=== PATIENT | female | born 1990 | race Caucasian/White ===

== ENCOUNTER 2018-09-14 23:18 | Emergency (ER) | payer MEDICAID ==
[~2018-09-14] VITALS: Ht 162.6 cm; Wt 95.3 kg
[2018-09-14 23:18] VITALS: BP 132/81
--- NOTE | 2018-09-14 23:25 | NUR ---
AMBULATED TO ER BED 2
--- NOTE | 2018-09-14 23:35 | NUR ---
PT C/O UTI SYMPTOMS X 9 DAYS, INCREASED FREQUENCY, FLANK PAIN 9/10 SORENESS BILAT FLANKS, NON RADIATING, CONTINUOUS. DENIES NVD. PATIENT PLACED ON MONITOR, BED IN LOW POSITION/LOCKED, SIDE RAILS UP X1.
--- NOTE | 2018-09-14 23:53 | NUR ---
Patient being evaluated by physician at bedside.
[2018-09-15] MEDS ORDERED: KETOROLAC 60 MG/2 ML VIAL IM ONE
--- NOTE | 2018-09-15 00:04 | NUR ---
lab at bedside
[2018-09-15 00:12] LABS: BASOPHILS # (AUTO) 0.1 K/uL (0.00-0.22); BASOPHILS % (AUTO) 0.7 % (0.0-2.0); EOSINOPHILS # (AUTO) 0.1 K/uL (0-0.4); EOSINOPHILS % (AUTO) 0.7 % (0.0-4.0); HEMATOCRIT 38.8 % (36-48); HEMOGLOBIN 13.1 g/dL (12.0-16.0); LYMPHOCYTES % (AUTO) 39.3 % (20.5-51.1); MEAN CORPUSCULAR HEMOGLOBIN 29 pg (27-31); MEAN CORPUSCULAR HGB CONC 34 g/dL (33-37); MEAN CORPUSCULAR VOLUME 86.8 fL (80-94); MONOCYTES # (AUTO) 0.5 K/uL (0.8-1.0); MONOCYTES % (AUTO) 6.8 % (1.7-9.3); NEUTROPHILS % (AUTO) 52.5 % (42.2-75.2); PLATELET COUNT (AUTO) 260 K/uL (140-450); RED BLOOD CELL COUNT(AUTO) 4.47 MIL/uL (4.20-5.40); RED CELL DISTRIBUTION WIDTH 13.2 % (11.6-13.7); WHITE BLOOD COUNT (AUTO) 7.7 K/uL (4.8-10.8)
[2018-09-15 00:21] LABS: ANION GAP 9.4 (8-16); CARBON DIOXIDE 29.5 mmol/L (21-32); CREATININE 1.8 mg/dL (0.6-1.3); POTASSIUM 3.9 mmol/L (3.5-5.1)
[2018-09-15 01:20] VITALS: BP 113/74
== END 2018-09-15 01:20 | disposition home or self-care (01) ==
LOC: MED 23:18
DX: N17.9 Acute kidney failure, unspecified (principal)
CPT/HCPCS: 36415; 80048; 81002; 81025; 85025; 96372; 99283; J1885

== ENCOUNTER 2018-12-10 01:28 | Emergency (ER) | payer MEDICAID ==
[~2018-12-10] VITALS: Ht 162.6 cm; Wt 95.3 kg
[2018-12-10 01:36] VITALS: BP 108/69
--- NOTE | 2018-12-10 01:36 | NUR ---
TO BED # 08 AMBULATORY
--- NOTE | 2018-12-10 02:05 | NUR ---
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 PT STATES SHE WAS SEEN HERE ABOUT 2 MONTHS AGO AND WAS DX WITH MILD KIDNEY DISEASE AND TO F/U WITH PMD FOR FURTHER EVALUATION. PT STATES SHE SAW PMD AND WAS TOLD SHE'S "TOO YOUNG TO HAVE KIDNEY DISEASE" AND WAS SENT HOME WITH A THREE MONTH COURSE OF ABX FOR UTI WITHOUT ANY FURTHER WORK UP. PT STATES THE MEDICATION MADE HER S/SX WORSE AND SHE STOPPED TAKING IT AFTER 3 WEEKS. PT ALSO C/O OLIGURIA AND FREQUENCY. PT STATES SHE NEEDS TO GO TO THE RR 20+ TIMES A DAY. PMH-- DENIES
[2018-12-10] MEDS ORDERED: LEVOFLOXACIN 750 MG TAB PO ONE (02:20)
[2018-12-10 02:34] VITALS: BP 108/69
--- NOTE | 2018-12-10 02:34 | NUR ---
Patient discharged with v/s stable. Written and verbal after care instructions given and explained. Patient alert, oriented and verbalized understanding of instructions. Ambulatory with steady gait. All questions addressed prior to discharge. ID band removed. Patient advised to follow up with PMD. Rx of Levaquin given. Patient educated on indication of medication including possible reaction and side effects. Opportunity to ask questions provided and answered.
== END 2018-12-10 02:34 | disposition home or self-care (01) ==
LOC: MED 01:28
DX: N12 Tubulo-interstitial nephritis, not specified as acute or chronic (principal); Z88.0 Allergy status to penicillin
CPT/HCPCS: 81002; 81025; 99282; 99283

== ENCOUNTER 2020-08-25 05:28 | Emergency (ER) | payer MEDICAID, OTHER ==
[~2020-08-25] VITALS: Ht 162.6 cm; Wt 86.2 kg
[2020-08-25 05:34] VITALS: BP 121/76
--- NOTE | 2020-08-25 05:34 | NUR ---
TO BED AMBULATORY
--- NOTE | 2020-08-25 05:45 | NUR ---
29 YO F BIB SELF FOR C/O BILAT FLANK PAIN. PT HAS URINARY HESISTANCY; DENIES FEVER/ AND OR CHILLS @ THIS TIME. PT STATES PAIN HAS BEEN ONGOING ON/OFF FOR LAST YEAR. PT AAOX4, ABD SOFT NON DISTENDED, ACTIVE BOWEL SOUNDS. GURNEY LOCKED IN LOWEST POSITION. WILL UPDATE ERMD HX: FREQUENT UTIS RX: NONE AX: PCN
[2020-08-25] MEDS ORDERED: ACETAMINOPHEN EXTRA STRENGTH 500 MG TAB PO ONE (06:55)
[2020-08-25] MEDS ORDERED: NACL 0.9% 1,000 ML IV ONE (07:00)
[2020-08-25 07:15] LABS: BASOPHILS % (AUTO) 0.6 % (0.0-2.0); EOSINOPHILS % (AUTO) 0.4 % (0.0-4.0); HEMATOCRIT 38.6 % (36-48); HEMOGLOBIN 12.8 g/dL (12.0-16.0); LYMPHOCYTES # (AUTO) 1.5 K/uL (2.5-16.5); LYMPHOCYTES % (AUTO) 21.5 % (20.5-51.1); MEAN CORPUSCULAR HEMOGLOBIN 29 pg (27-31); MEAN CORPUSCULAR HGB CONC 33 g/dL (33-37); MEAN CORPUSCULAR VOLUME 87.7 fL (80-94); MONOCYTES # (AUTO) 0.4 K/uL (0.8-1.0); MONOCYTES % (AUTO) 5.8 % (1.7-9.3); NEUTROPHILS % (AUTO) 71.7 % (42.2-75.2); PLATELET COUNT (AUTO) 216 K/uL (140-450); RED CELL DISTRIBUTION WIDTH 13.1 % (11.6-13.7)
--- NOTE | 2020-08-25 07:24 | NUR ---
REPORT GIVEN TO DAY SHIFT FOR CONTINUITY OF CARE
[2020-08-25 07:29] LABS: ALBUMIN 3.7 g/dL (3.4-5.0); ANION GAP 12.2 (8-16); CARBON DIOXIDE 28.2 mmol/L (21-32); CREATININE 0.9 mg/dL (0.6-1.3); POTASSIUM 4.4 mmol/L (3.5-5.1); TOTAL BILIRUBIN 0.4 mg/dL (0.0-1.0)
[2020-08-25 07:33] LABS: BILIRUBIN,URINE NEGATIVE (NEGATIVE); BLOOD, URINE NEGATIVE (NEGATIVE); COLOR,URINE YELLOW (YELLOW); LEUKOCYTE ESTERASE ,URINE 1+ (NEGATIVE); NITRITE, URINE NEGATIVE (NEGATIVE); UGLUCOSE NEGATIVE (NEGATIVE)
[2020-08-25 07:40] LABS: RBC,URINE 0-5 /HPF (0-5); WBC,URINE 0-5 /HPF (0-5)
[2020-08-25 07:41] LABS: APPEARANCE,URINE SLIGHTLY HAZY (CLEAR)
[2020-08-25] MEDS ORDERED: KETOROLAC 30 MG/ML VIAL ONE (09:09)
[2020-08-25] MEDS ORDERED: KETOROLAC 30 MG/ML VIAL IVP ONE (09:10)
--- NOTE | 2020-08-25 09:45 | NUR ---
Patient discharged with v/s stable. Written and verbal after care instructions about flank pain given and explained. Patient verbalized understanding. Ambulatory with steady gait. All questions addressed prior to discharge. Advised to follow up with PMD.
[2020-08-25 09:53] VITALS: BP 118/70
== END 2020-08-25 09:45 | disposition home or self-care (01) ==
LOC: MED 05:28
DX: R10.9 Unspecified abdominal pain (principal); Z88.0 Allergy status to penicillin
CPT/HCPCS: 36415; 80053; 81001; 81025; 82150; 83690; 84703; 85025; 87086; 96361; 96374; 99284; J1885; J7030

== ENCOUNTER 2020-10-01 20:52 | Emergency (ER) | payer OTHER ==
[~2020-10-01] VITALS: Ht 162.6 cm; Wt 81.6 kg
[2020-10-01 21:11] VITALS: BP 126/71
--- NOTE | 2020-10-01 21:44 | NUR ---
PT AMBULATED TO BED 1
--- NOTE | 2020-10-01 21:57 | NUR ---
26/F complaining of sob, back pain/body aches, productive cough x 2 days. Pt denies any nausea, vomiting, diarrhea, feveer. Pt not sure if she had contact with any sick person. Pt denies otc medication. Pt aox4, ambulatory, able to make needs known. Respirations even and unlabored, pt not in distress. No requests made at this time. [facility], will continue to monitor. med hx: "kidney problems" (unidentified), anemia allergies: penicillins
--- NOTE | 2020-10-01 22:29 | NUR ---
Dr. Jennings examining patient.
--- NOTE | 2020-10-01 22:35 | NUR ---
COVID BALWINDER SWAB COLLECTED AND SENT TO LAB
[2020-10-01] MEDS ORDERED: ALBU0.0912 IH (23:22)
[2020-10-01] MEDS ORDERED: PRED20TA5 PO (23:22)
[2020-10-01 23:30] VITALS: BP 126/71
--- NOTE | 2020-10-01 23:30 | NUR ---
Patient discharged with v/s stable. Written and verbal after care instructions given and explained. Patient alert, oriented and verbalized understanding of instructions. Ambulatory with steady gait. All questions addressed prior to discharge. ID band removed. Patient advised to follow up with PMD. Rx of Albuterol, Prednisone given. Patient educated on indication of medication including possible reaction and side effects. Opportunity to ask questions provided and answered.
== END 2020-10-01 23:30 | disposition home or self-care (01) ==
LOC: MED 20:52
DX: J20.9 Acute bronchitis, unspecified (principal); Z20.822 Contact with and (suspected) exposure to COVID-19; Z88.0 Allergy status to penicillin
CPT/HCPCS: 99283